=== PATIENT | female | born 1945 | race Caucasian/White ===

== ENCOUNTER 2017-07-27 07:31 | Day surgery (SDC) | payer MEDICARE ==
[~2017-07-27 07:31] MED LIST: BUPIVACAINE-EPI 0.25%-1:200000 MPF 30 ML VIAL. ONE; CRAN200C2 PO; ESOM40CA PO; HYDR-971 PO; HYDROmorphone 2 MG/ML VIAL IV PRN; IV RINGERS,LACTATED 1000ML 1,000 ML IV SCH; LEVO100T5 PO; LIDOCAINE 1% PF 2 ML VIAL. ID PRN; MORPHINE SULFATE 2 MG/ML DISP.SYRIN. IV PRN; MULT-114 PO; MULT1CAP15 PO; OMEG1CAP27 PO; ONDA4TAB7 PO; ONDANSETRON PF 4 MG/2 ML VIAL. IV PRN; PROCHLORPERAZINE 10 MG/2 ML VIAL. IV PRN; SIMV20TA3 PO; [UNRECOGNIZED DRUG - CODE] PO; [UNRECOGNIZED DRUG - REMARK] PO; fentaNYL PF VIAL 100 MCG/2 ML VIAL IV PRN
[2017-07-27] MEDS ORDERED: DEXAMETHASONE SOD PHOS 20 MG/5 ML VIAL. ONE (08:31)
[2017-07-27] MEDS ORDERED: PROPOFOL 20 ML IV ONE (08:31)
[2017-07-27] MEDS ORDERED: LIDOCAINE 2% PF Vial for OR 5 ML VIAL. ONE (08:31)
[2017-07-27] MEDS ORDERED: ONDANSETRON PF 4 MG/2 ML VIAL. ONE (08:32)
[2017-07-27] MEDS ORDERED: fentaNYL PF VIAL 250 MCG/5 ML VIAL ONE (08:34)
[2017-07-27] MEDS ORDERED: MIDAZOLAM HCL/PF 2 MG/2 ML VIAL. ONE (08:34)
[2017-07-27] MEDS ORDERED: SEVOFLURANE 31 TO 60 MINUTES. IH ONE (09:37)
[2017-07-27] MEDS ORDERED: SEVOFLURANE UP TO 15 MINUTES. IH ONE (09:37)
--- NOTE | 2017-07-27 09:53 | PDOC4 ---
Operative Note Operative Note Date: 07/27/2017 Preoperative diagnosis: Left breast mass Postoperative diagnosis: Same Procedure: Excisional left breast biopsy Surgeon: Mal Specimen: Left breast mass Dictation: Patient is a 71-year-old female who's had a history of breast cancer comes in with complaints of a mass in the left breast that she can feel. Mammogram show suspicious lesion in this area procedure of left breast biopsy is explained to the patient in detail was benefits were also discussed including bleeding and infection alternatives to this procedure also discussed with the patient who seemed understanding table verbal and written consent had procedure performed. The the operating room placed in the supine position general anesthesia was initiated once patient was asleep and intubated her left breast was prepped and draped in usual sterile fashion using ChloraPrep. An area around the masses injected with quarter percent Marcaine with epinephrine and elliptical incision of the skin was carried down through the subtendinous tissue left cautery by hemostasis deep to the mass this was then completely excised and sent for pathology. Hemostasis deemed to be appropriate and the wound was closed in 2 layers a deep layer running 3-0 Vicryl and the skin was approximate 4 septic Monocryl Mastisol Steri-Strips and island dressing was applied. Patient was awakened and asked made in the operating room taken to recovery in stable condition all sponge instrument and needle counts listed as correct estimated blood loss 10 mL. LISET FERNANDES MD Jul 27, 2017 09:53
--- NOTE | 2017-07-27 09:54 | DISCH ---
DISCHARGE INSTRUCTIONS Condition on Discharge Condition on Discharge: Stable Activity After Discharge Activity Instructions for Disc: Activity as tolerated Diet after Discharge Diet after Discharge: Regular Wound Incision Care Other wound/incision instructi: May shower in 24 hours Contacting the after DC Call your doctor for: If your condition worsens Follow-Up Follow up with: Dr Fernandes in 2 weeks LISET FERNANDES MD Jul 27, 2017 09:54
[2017-07-27] MEDS ORDERED: HYDR-971 PO (10:07)
[2017-07-27] MEDS ORDERED: HYDROcodone/APAP 5/325MG 1 TAB TABLET PO ONE (10:15)
[2017-07-27 10:50] VITALS: BP 112/67
--- NOTE | 2017-08-01 08:47 | PATHOLOGY ---
PATHOLOGY REPORT * * * * * * * * FINAL DIAGNOSIS: Breast, left, lumpectomy: - Findings consistent with previous biopsy site (or previous irradiation area) with associated fat necrosis. - Sclerosing adenosis with associated calcifications. - Blood vessels with calcified atherosclerosis. (please see comment) COMMENT: [facility] [employer] sections of the previous biopsy site in this case have been reviewed by Dr. Harlan Roach, who agrees with the diagnosis. (SKM:mgbucky; 07/31/2017) REPORT ELECTRONICALLY SIGNED BY: Mariaelena Atkinson M.D. DATE/TIME: 08/01/2017 08:46 * * * * * * * * GROSS PATHOLOGY: Received in formalin labeled "Blake Garvey, left breast biopsy" is a breast lumpectomy specimen which is oriented on the requisition as "stitch is long-lateral, short deep, 2 stitches-medial". The specimen measures 5.3 cm from superficial to deep, 4.5 cm from medial to lateral, and 3.1 cm from superior to inferior. The specimen is inked as follows: Superior-red, inferior-blue, medial-yellow, lateral-orange, inferior-green, posterior-black. Present on the anterior surface is an ellipse of diane-white skin measuring 3.4 x 1.4 x 0.3 cm. The skin has no gross abnormalities. The specimen is serially sectioned from lateral to medial in 11 slices. Upon sectioning, a white-diane firm area measuring 1.4 x 1.0 x 1.0 cm is identified in slices 6-7. This area measures less than 0.1 cm to the anterior soft tissue margin, 0.5 cm to the skin margin, 0.8 cm to the skin surface, 0.9 cm to the superior margin, 1.3 cm to the inferior margin, 3.1 cm to the deep margin, 2.3 cm to the lateral margin, and 1.4 cm to the medial margin. The remainder of the specimen is 80% yellow and lobulated and 20% dense white and fibrous. No biopsy clips are identified. The specimen is removed and the patient at 0932, placed in formalin at 0934, and removed from formalin at 2340 on 07/27/2017. [employer] sections of the specimen are submitted as follows: A1 software sales representative lateral margin (slice 1) A2 software sales representative slice 2 A3 software sales representative slice 3 A4-A7 entire slice 4 A3-A11 entire slice 5 A12-A15 entire slice 6 A16-A19 entire slice 7 A20 software sales representative slice 8 A21 software sales representative slice 9 A22 software sales representative slice 10 A23 software sales representative medial margin (slice 11) ([facility]; 07/27/2017) INITIAL CPT CODE(S): A; 05765 Professional services performed by [facility] at [address] [address] Technical services performed by [facility] at [address] [place] [address], [address] [address]. [facility] Imaging attention: Carito/Marie fax: [phone] SPECIMEN(S) RECEIVED: A.Left breast biopsy CLINICAL HISTORY: Left breast mass PATIENT: BLAKE GARVEY /AGE: 111/03/1945 (Age: 71) PATIENT #: [id number] ALT CASE #: SPECIMEN COLLECTION DATE: 07/27/2017 SPECIMEN RECEIVED DATE: 07/27/2017 [facility] - [address] [place] [address] - PHONE: [phone] * * * END OF REPORT * * *
== END 2017-07-27 11:10 | disposition home or self-care (01) ==
LOC: SURG 07:31
PROVIDERS: ATTEND Surgery
DX: N63 Unspecified lump in breast (principal); Z85.3 Personal history of malignant neoplasm of breast; E78.00 Pure hypercholesterolemia, unspecified; Z90.49 Acquired absence of other specified parts of digestive tract; E66.9 Obesity, unspecified; Z68.39 Body mass index [BMI] 39.0-39.9, adult; E03.9 Hypothyroidism, unspecified; Z87.442 Personal history of urinary calculi; Z87.891 Personal history of nicotine dependence; Z86.39 Personal history of other endocrine, nutritional and metabolic disease; Z88.0 Allergy status to penicillin; Z88.2 Allergy status to sulfonamides
CPT/HCPCS: 19120; C1769; J1100; J1956; J2250; J2405; J2704; J3010; J2001

== ENCOUNTER → 2017-11-09 | Outpatient (CLI) | payer MEDICARE, OTHER | END | disposition home or self-care (01) | LOC: KCIC MRI 10:12 | DX: M47.892 Other spondylosis, cervical region (principal); M54.5 Low back pain | CPT/HCPCS: 72141; 72148 ==

== ENCOUNTER → 2019-05-16 | Outpatient (CLI) | payer MEDICARE, OTHER ==
[~2019-05-16] MED LIST changes: -BUPIVACAINE-EPI 0.25%-1:200000 MPF 30 ML VIAL. ONE; +HYDR-3164 PO; -HYDR-971 PO; -HYDROmorphone 2 MG/ML VIAL IV PRN; -IV RINGERS,LACTATED 1000ML 1,000 ML IV SCH; -LIDOCAINE 1% PF 2 ML VIAL. ID PRN; -MORPHINE SULFATE 2 MG/ML DISP.SYRIN. IV PRN; -ONDANSETRON PF 4 MG/2 ML VIAL. IV PRN; -PROCHLORPERAZINE 10 MG/2 ML VIAL. IV PRN; -fentaNYL PF VIAL 100 MCG/2 ML VIAL IV PRN
--- NOTE | 2019-05-16 16:12 | KCIC ---
LEFT DIAGNOSTIC 3-D MAMMOGRAPHY AND BREAST ULTRASOUND History: History of left breast cancer 2004. Patient notes left nipple changes with small lump. There is linear skin change extending from this area to the old scar site. Comparison: Bilateral mammogram 07/05/2017. Technique: Routine MLO and CC tomosynthesis (3D) digital views performed. Images reviewed by the radiologist at dedicated workstation. Findings: Breast Tissue Density C : The breasts are heterogeneously dense, which may obscure small masses. Benign calcifications in the right and left breast. Biopsy clip in the upper right breast. Right mammogram appears stable. Best seen on tomosynthesis images, there is scar with central lucency in the left breast at the 10:00 B position, likely postoperative related to prior breast cancer. Just superior and lateral to the scar there is unexplained architectural distortion. The palpable marker is at the 2:00 position at anterior depth and slight skin retraction is noted and there is asymmetric density in the underlying breast. Mild anterior left breast skin thickening is new. Real-time ultrasound imaging of the left breast is performed. At the area of palpable concern 2:00 position 2 cm from the nipple there is an ill-defined mass with posterior acoustic shadowing measuring 1.8 x 1.6 cm. The mass extends to the dermis which is slightly thickened. At the 10:00 position 6 cm from the nipple at the area of scarring there is a fluid pocket that is probably a chronic seroma. Immediately adjacent to this there is a mass with architectural distortion. The mass measures 2.1 x 1.3 cm. There is posterior acoustic shadowing. The mass nearly abuts the dermis superficially. At the 7:00 position 5 cm from the nipple, there is an indeterminate hypoechogenicity that is subdermal and measures 3 x 7 x 3 mm. No abnormal left axillary lymph node is identified. IMPRESSION: 1. There is a mass and architectural distortion in the left breast 10:00 position 6 cm from the nipple adjacent to post lumpectomy site and chronic seroma. The mass is highly suspicious for breast malignancy. 2. At the area of palpable concern left breast 2:00 position 2 cm from the nipple there is a mass with skin retraction. Mass is highly suspicious for breast malignancy, suggesting multicentric disease. 3. Recommend ultrasound-guided biopsy of both masses. BI-RADS Category 5: Highly suggestive of malignancy. The images were reviewed with computer-aided detection. Findings and recommendations called to Dr. Dunn's office at 3:55 PM. The casualty claims supervisor will relay the results to the patient. Patient information is entered into the reminder system with a target due date for the next screening mammogram. Mammography is the most sensitive method for finding small breast cancers, but it does not detect them all and is not a substitute for careful clinical examination. A negative mammogram does not negate a clinically suspicious finding and should not result in delay in biopsying a clinically suspicious abnormality. "Our facility is accredited by the [employer] Mammography Program." Electronically signed by: Rudy Ferguson MD (05/16/2019 4:09 PM) [id number]
== END | disposition home or self-care (01) ==
LOC: KCIC MAMMO 12:47
PROVIDERS: ATTEND Family Medicine
DX: N64.89 Other specified disorders of breast (principal); N63.21 Unspecified lump in the left breast, upper outer quadrant; N63.22 Unspecified lump in the left breast, upper inner quadrant; Q83.9 Congenital malformation of breast, unspecified; Z85.3 Personal history of malignant neoplasm of breast
CPT/HCPCS: 76641; 77066; G0279; 77062

== ENCOUNTER 2019-06-12 08:01 | Day surgery (SDC) | payer MEDICARE ==
[~2019-06-12] VITALS: Ht 167.6 cm; Wt 71.0 kg
[~2019-06-12 08:01] MED LIST changes: +ACETAMINOPHEN 500 MG TABLET PO ONE; +BUPIVACAINE-EPI 0.25%-1:200000 MPF 30 ML VIAL. IJ ONE; +CLINDAMYCIN 900MG PREMIX 50 ML IV ONE; +HYDROmorphone 2 MG/ML VIAL IV PRN; +IV RINGERS,LACTATED 1000ML 1,000 ML IV SCH; +LIDOCAINE 1% PF 2 ML VIAL. ID PRN; +MORPHINE SULFATE 2 MG/ML VIAL. IV PRN; +ONDANSETRON PF 4 MG/2 ML VIAL. IV PRN; +PROCHLORPERAZINE 10 MG/2 ML VIAL. IV PRN; +fentaNYL PF VIAL 100 MCG/2 ML VIAL IV PRN
[2019-06-12] MEDS ORDERED: LIDOCAINE 2% PF 5 ML VIAL. ONE (09:16)
[2019-06-12] MEDS ORDERED: ONDANSETRON PF 4 MG/2 ML VIAL. ONE (09:16)
[2019-06-12] MEDS ORDERED: DEXAMETHASONE SOD PHOS 4 MG/ML VIAL ONE (09:16)
[2019-06-12] MEDS ORDERED: fentaNYL PF VIAL 100 MCG/2 ML VIAL ONE (09:16)
[2019-06-12] MEDS ORDERED: PROPOFOL 20 ML IV ONE (09:16)
[2019-06-12] MEDS ORDERED: SEVOFLURANE 31 TO 60 MINUTES. IH ONE (09:57)
[2019-06-12] MEDS ORDERED: ePHEDrine PF IN SALINE 50 MG/10 ML SYRINGE. IV ONE (09:57)
--- NOTE | 2019-06-12 10:11 | PDOC4 ---
Operative Note Operative Note Date: 06/12/2019 Preoperative diagnosis: Left breast mass Postoperative diagnosis: Same Procedure: Excisional breast biopsy left breast Surgeon: Mal Specimen: Left breast mass Dictation: Patient is a 73-year-old female who's had bilateral breast cancers with lumpectomies either side is recently she developed a palpable mass just lateral to the nipple areolar complex in the left breast with some redness of the skin. Procedure of excisional breast biopsy was explained to the patient detail risk benefits were also discussed including bleeding infection alternatives to this procedure also discussed with the patient seemed to understand gave both verbal and written consent to have the procedure performed. Patient was taken to the operating room placed in supine position general anesthesia was initiated once patient was asleep and intubated her left chest and neck were prepped and draped usual sterile fashion using ChloraPrep and area around the mass was injected with quarter percent Marcaine with epinephrine incision was made with 15 blade scalpel incorporating elliptical area of skin above the mass is carried down through the subcutaneous tissue using electrocautery to fully excise the palpable mass this was sent to pathology being marked with suture short being the medial aspect of the mass and the long suture being the lateral aspect of the mass. Wound was then closed in 2 layers deep layer running 3-0 Vicryl and skin was approximate for septic and a Monocryl Mastisol Steri-Strips and island dressing were applied. The patient was awakened and extubated in the operating room taken to recovery in stable condition all sponge instrument needle counts listed as correct estimated blood loss 5 mL LISET FERNANDES MD Jun 12, 2019 10:11
--- NOTE | 2019-06-12 10:13 | DISCH ---
DISCHARGE INSTRUCTIONS Condition on Discharge Condition on Discharge: Stable Activity After Discharge Activity Instructions for Disc: Activity as tolerated Diet after Discharge Diet after Discharge: Regular Wound Incision Care Other wound/incision instructi: a shower in 24 hours Contacting the DRGabriel after DC Call your doctor for: If your condition worsens Follow-Up Follow up with: Dr. Fernandes in 2 weeks LISET FERNANDES MD Jun 12, 2019 10:13
[2019-06-12] MEDS ORDERED: HYDR-3164 PO (10:21)
[2019-06-12] MEDS ORDERED: HYDROcodone/APAP 5/325MG 1 TAB TABLET PO ONE ×2 (10:30)
[2019-06-12 10:43] VITALS: BP 110/52
--- NOTE | 2019-06-17 16:06 | PATHOLOGY ---
[facility] Accession Number: [id number] . 01 Material submitted: . breast - LEFT BREAST MASS SHORT STITCH MEDIAL,LONG STITCH LATERAL. Modifiers: left . 01 Clinical history: . Left breast mass . 02 Diagnosis: Skin and breast tissue, left breast mass oriented excisional biopsy: - Organizing fat necrosis showing fibrosis, chronic inflammation and focal calcification. - Fibrocystic changes with the following components: - Stromal fibrosis. - Mild duct ectasia: - Focal microcyst formation. - Apocrine metaplasia, focal. - Sclerosing adenosis, several foci. - Microcalcifications identified within sclerosing adenosis and fibrocystic change. ([facility] 06/17[facility]2019) [facility]/06/17/2019 . 02 Comment: There is no evidence of malignancy. ([facility]PM[facility] 06/17/2019) . 02 Electronically signed: . Rush Johnson MD, Pathologist NPI- [id number] . 01 Gross description: . The specimen is received in formalin, labeled "Stephanie Valdes, left breast mass" and consists of an oriented 24 g lumpectomy specimen with a long stitch lateral and short stitch medial. There is an unremarkable pink-diane skin ellipse measuring 2.7 x 0.9 cm which is located at the presumed anterior/medial aspect. The specimen measures 6.9 cm L-M, 4.2 cm S-I, 2.1 cm A-P, and is inked as follows: superior-blue, inferior-green, medial-red, lateral-yellow, anterior-orange, and posterior-black. It is sectioned from lateral to medial revealing extensive fibrous tissue occupying over 60% of the specimen. No distinct masses or lesions are identified. Costume Technician sections are submitted as follows: . A1: Lateral, perpendicular A2: Slice 3 A3: Slice 6 A4: Slice 9 A5-A6: Slice 12, bisected A7-A8: Slice 15, bisected A9: Slice 17 A10: Medial, perpendicular . The specimen was collected on 06/12/2019 with no time in formalin. The cold ischemic time is unknown and the time out of formalin is 11:50 PM on 06/13/2019 (SDY; 06/13/2019) SYU/SYU . 02 Pathologist provided ICD-10: N60.12, N60.32, N60.42, N60.82, N60.22, N64.1 . 02 CPT . 564771 Specimen Comment: A courtesy copy of this report has been sent to Specimen Comment: [phone], . Specimen Comment: Report sent to / DR JEFFRIES Performed at: 01 [facility] [address], [place] [id number] MD Eris Mei MD Phone: [phone] Performed at: 02 [facility] [address], [place] [id number] MD Rush Johnson MD Phone: [phone]
== END 2019-06-12 11:10 | disposition home or self-care (01) ==
LOC: SURG 08:01
PROVIDERS: ATTEND Surgery
DX: N60.12 Diffuse cystic mastopathy of left breast (principal); N60.22 Fibroadenosis of left breast; Z85.3 Personal history of malignant neoplasm of breast; Z90.49 Acquired absence of other specified parts of digestive tract; Z90.12 Acquired absence of left breast and nipple; Z72.89 Other problems related to lifestyle; Z88.1 Allergy status to other antibiotic agents; Z88.0 Allergy status to penicillin; Z88.8 Allergy status to other drugs, medicaments and biological substances
CPT/HCPCS: 19120; 88307; A7015; J0171; J1100; J2001; J2405; J2704; J3010; J3490

== ENCOUNTER → 2021-07-14 | Outpatient (CLI) | payer MEDICARE ==
[~2021-07-14] MED LIST changes: -ACETAMINOPHEN 500 MG TABLET PO ONE; -BUPIVACAINE-EPI 0.25%-1:200000 MPF 30 ML VIAL. IJ ONE; -CLINDAMYCIN 900MG PREMIX 50 ML IV ONE; -HYDROmorphone 2 MG/ML VIAL IV PRN; -IV RINGERS,LACTATED 1000ML 1,000 ML IV SCH; -LIDOCAINE 1% PF 2 ML VIAL. ID PRN; -MORPHINE SULFATE 2 MG/ML VIAL. IV PRN; -ONDANSETRON PF 4 MG/2 ML VIAL. IV PRN; -PROCHLORPERAZINE 10 MG/2 ML VIAL. IV PRN; +SIMV20TA18 PO; -SIMV20TA3 PO; -fentaNYL PF VIAL 100 MCG/2 ML VIAL IV PRN
--- NOTE | 2021-07-14 16:07 | KCIC ---
EXAM: DUAL ENERGY X-RAY ABSORPTIOMETRY (DEXA). HISTORY: Postmenopausal screening. FINDINGS: The lowest measured T-score is 1.5 in the lumbar spine, based on a bone mineral density of 0.881 g/cm^2. Refer to the worksheets for full detail. No comparison examinations are available. IMPRESSION: 1. Low bone mass. Bone mineral density yields a T-score between -1.0 and -2.5. Fracture risk is incre ased. 2. FRAX report: Not calculated. METHODOLOGY: Dual energy x-ray absorptiometry was performed to measure bone mineral density. The foll owing analysis is based on the 2019 Official Positions of the International Society for Clinical Dens itometry: Measurements of the hips and the average of L1-L4 are preferred. When the spine and/or hip cannot be feasibly measured or interpreted, or in the setting of hyperparathyroidism, distal radial bone minera l density may be measured. The lumbar spine T-score is based on the average bone mineral density of L1-L4. In the setting of art ifact or anatomic abnormality, some lumbar levels may be excluded, and the remaining levels used for calculation. A single lumbar level is not used for diagnosis, and if only a single level is available for assessment, another anatomic site will be used to assign a diagnosis. The hip T-score is based on the bone mineral density measurement of the femoral neck or total proxima l femur of either side, whichever is lowest. Bilateral mean values are not used for diagnosis. The forearm T-score is derived from 33% of the distal radius of the nondominant forearm. Electronically signed by: Jacqueline Gustafson MD (07/14/2021 4:05 PM) [id number]
--- NOTE | 2021-07-14 17:22 | KCIC ---
Bilateral digital screening mammograms with 3-D tomosynthesis: Reason for examination: Routine screening. History of left breast cancer with lumpectomy. Comparison is made to previous studies dated back to 07/14/2015. Bilateral mammograms in CC and oblique projections were obtained with 2-D imaging and 3-D tomosynthes is imaging on a Siemens Inspiration unit and reviewed on the workstation. Interpretation was made hipolito turk the benefit of CAD. The skin and nipples show no abnormalities. No abnormal axillary lymph nodes are seen. The breast par enchyma is heterogeneously dense. (Breast density: Category C.) There are postop changes in the left breast. There are no new dominant masses, suspicious calcifications or architectural distortion. Bola gn calcifications are present. Impression: Postoperative changes in the left breast. No evidence of recurrent malignancy. Recommend routine scre ening. Your patient's mammogram demonstrates that she has dense breast tissue (breast density category C or D), which could hide abnormalities, and if she has other risk factors for breast cancer that have bee n identified, she might benefit from supplemental screening tests that may be suggested by you as her ordering physician. Dense breast tissue, in and of itself, is a relatively common condition. Therefo re, this information is not provided to cause undue concern, but rather to raise your awareness and t o promote discussion with your patient regarding the presence of other risk factors, in addition to d ense breast tissue. Your patient's mammography results will be sent to her. BI-RAD Category 2: Benign. "Our facility is accredited by the [employer] Mammography Program." This patient's information has been entered into a reminder system for the patient to be notified hipolito turk the results of her examination and a target date for the next mammogram. Electronically signed by: Lisa Magdaleno MD (07/14/2021 5:19 PM) [id number]
== END ==
LOC: KCIC MAMMO 13:54
PROVIDERS: ATTEND Family Medicine
DX: Z12.31 Encounter for screening mammogram for malignant neoplasm of breast (principal); M85.88 Other specified disorders of bone density and structure, other site; R92.8 Other abnormal and inconclusive findings on diagnostic imaging of breast; N95.9 Unspecified menopausal and perimenopausal disorder
CPT/HCPCS: 77063; 77067; 77080